=== PATIENT | male | born 1960 | race African-American/Black ===

== ENCOUNTER 2025-01-19 08:17 | Emergency (ER) | payer SELFPAY ==
[~2025-01-19] VITALS: Ht 177.8 cm; Wt 73.0 kg
[2025-01-19 08:23] VITALS: BP 122/73; PULSE 77; RESP 18; TEMP 36.8; O2SAT 99
== END 2025-01-19 10:31 | disposition home or self-care (01) ==
LOC: ER 08:17
DX: M79.673 Pain in unspecified foot (principal); Z59.00 Homelessness unspecified
CPT/HCPCS: 99283